=== PATIENT | male | born 1970 | race Caucasian/White ===

== ENCOUNTER 2017-06-16 11:02 | Emergency (ER) | payer OTHER ==
[~2017-06-16] VITALS: Ht 182.9 cm; Wt 96.5 kg
[2017-06-16 11:05] VITALS: BP 143/91
[2017-06-16] MEDS ORDERED: LORazepam 1MG TABLET PO ONE (11:30)
[2017-06-16] MEDS ORDERED: LORazepam 1MG TABLET ONE (11:33)
== END 2017-06-16 12:02 | disposition home or self-care (01) ==
LOC: ED 11:30
DX: F41.1 Generalized anxiety disorder (principal); E78.5 Hyperlipidemia, unspecified; I10 Essential (primary) hypertension; Z85.828 Personal history of other malignant neoplasm of skin
CPT/HCPCS: 93005; 99284